=== PATIENT | female | born 1990 | race African-American/Black ===

== ENCOUNTER 2018-09-13 05:15 | Inpatient (IN) ==
[2018-09-13] MEDS ORDERED: CITRIC ACID/SODIUM CITRATE 30 ML UDCUP PO ONE (05:26)
[2018-09-13] MEDS ORDERED: FAMOTIDINE 20 MG/2 ML VIAL IV ONE (05:26)
[2018-09-13] MEDS ORDERED: LACTATED RINGERS 1,000 ML IV ONE (05:35)
[2018-09-13 05:50] LABS: Basophils % 0.3 % (0.0-0.8); Eosinophils # 0.4 10*3/uL (0.0-0.87); Eosinophils % 3.1 % (0.00-10.9); Hematocrit 31.4 VOL% (35.7-47.0); Hemoglobin 10.7 GM/DL (12.0-16.0); Immature Granulocytes % 0.4 %; Immature Granulocytes Absolute 0.05 #; Lymphocytes # 2.5 10*3/uL (1.4-4.0); Mean Corpuscular HGB Conc 34.1 GM/DL (32-36); Mean Platelet Volume 10.2 FL (9.6-12.0); NRBC # 0.02 10*3/uL; Neutrophils % 66.2 % (38.7-73.9); Platelet Count 197 T/CUMM (130-400); Red Blood Count 3.65 MC/CUMM (3.8-5.5); Red Cell Distribution Width 13.5 % (9.3-17.3); White Blood Count 11.5 T/CUMM (4-12)
[2018-09-13 06:09] LABS: Alanine Aminotransferase 10 U/L (13-56); Albumin 2.8 G/DL (3.4-5.0); Alkaline Phosphatase 113 U/L (45-117); Aspartate Amino Transferase 8 U/L (0-37); Bilirubin,Total < 0.39 MG/DL (0.2-1.0); Blood Urea Nitrogen 5 MG/DL (7-18); Calcium 8.7 MG/DL (8.5-10.1); Glucose 79 MG/DL (74-106); Osmolality,Calculated 268.8 MOS/KG (273-304); Total Protein 6.9 G/DL (6.4-8.3)
[2018-09-13] MEDS ORDERED: ceFAZolin 2,000 MG in PREMIX 1 EACH IV ONE (07:00)
[2018-09-13] MEDS ORDERED: OXYTOCIN/LR 30 UNIT/1,000 ML BAG IV ONE (08:09)
[2018-09-13] MEDS ORDERED: OXYTOCIN 10 UNIT/ML VIAL IM ONE (08:10)
[2018-09-13] MEDS ORDERED: fentaNYL 100 MCG/2 ML VIAL ONE (09:11)
[2018-09-13] MEDS ORDERED: MORPHINE 10 MG/10 ML VIAL ONE (09:11)
[2018-09-13] MEDS ORDERED: PHENYLEPHRINE 1 MG/10 ML SYRINGE IV ONE (09:11)
[2018-09-13] MEDS ORDERED: BUPIVACAINE SPINAL 0.75% 2 ML AMP SPINAL ONE (09:12)
[2018-09-13] MEDS ORDERED: ONDANSETRON 4 MG/2 ML VIAL ONE (09:12)
[2018-09-13] MEDS ORDERED: EPINEPHrine 1 MG/ML VIAL ONE (09:25)
[2018-09-13] MEDS ORDERED: BUPIVACAINE 0.5% 50 ML VIAL ONE (09:25)
[2018-09-13 10:05] LABS: Cord Venous Blood PCO2 43.5 MMHG
[2018-09-13] MEDS: ONDANSETRON 4 MG/2 ML VIAL IV PRN ×2 (11:15→14:22)
[2018-09-13 11:48] LABS: Apearance,Urine CLEAR (Clear); Bacteria,Urine Occasional /HPF (Few); Bilirubin,Urine Negative (Negative); Blood, Urine Negative (Negative); Glucose,Urine (UA) Negative (Negative); Ketones,Urine Negative (Negative); Mucus,Urine Occasional /LPF (Occasional); Nitrite,Urine Negative (Negative); Protein,Urine Negative; Squamous Epithelial Cell,Urine Occasional /HPF (0-10); Urine Color Yellow (Yellow); Urine Specific Gravity 1.011 (1.001-1.035); Urine Urobilinogen < 2.0 EU/DL (0.2-1.0); WBC,Urine <1 /HPF (0-6)
[2018-09-13] MEDS ORDERED: OXYTOCIN/LR 20 UNIT/1,000 ML BAG IV ONE (13:51)
[2018-09-13] MEDS ORDERED: ACETAMINOPHEN 325 MG TABLET PO PRN (13:51)
[2018-09-13] MEDS ORDERED: RHO(D) IMMUNE GLOBULIN 300 MCG SYRINGE IM ONE (13:51)
[2018-09-13] MEDS ORDERED: IBUPROFEN 800 MG TABLET PO PRN (13:51)
[2018-09-13] MEDS: ceFAZolin 1,000 MG in SYRINGE 1 EACH IV SCH (17:47)
[2018-09-13 18:52] LABS: Basophils % 0.2 % (0.0-0.8); Eosinophils % 0.1 % (0.00-10.9); Hematocrit 29.6 VOL% (35.7-47.0); Hemoglobin 10.3 GM/DL (12.0-16.0); Immature Granulocytes % 0.5 %; Lymphocytes # 1.4 10*3/uL (1.4-4.0); Lymphocytes % 7.2 % (21.3-54.2); Mean Corpuscular HGB Conc 34.8 GM/DL (32-36); Mean Corpuscular Volume 85.3 FL (87-102); Mean Platelet Volume 11.1 FL (9.6-12.0); Monocytes % 4.7 % (1.7-12.7); Neutrophils % 87.3 % (38.7-73.9); Platelet Count 188 T/CUMM (130-400); Red Blood Count 3.47 MC/CUMM (3.8-5.5); Red Cell Distribution Width 13.3 % (9.3-17.3); White Blood Count 19.2 T/CUMM (4-12)
[2018-09-13] MEDS: LACTATED RINGERS 1,000 ML IV SCH ×2 (20:15→20:21)
[2018-09-13] MEDS: DOCUSATE SODIUM 100 MG CAPSULE PO SCH (21:11)
[2018-09-14] MEDS: ceFAZolin 1,000 MG in SYRINGE 1 EACH IV SCH (01:40)
[2018-09-14] MEDS: LACTATED RINGERS 1,000 ML IV SCH (04:31)
[2018-09-14 06:17] LABS: Basophils % 0.3 % (0.0-0.8); Eosinophils # 0.1 10*3/uL (0.0-0.87); Eosinophils % 0.4 % (0.00-10.9); Hematocrit 27.3 VOL% (35.7-47.0); Hemoglobin 9.3 GM/DL (12.0-16.0); Immature Granulocytes % 0.6 %; Immature Granulocytes Absolute 0.09 #; Lymphocytes # 1.9 10*3/uL (1.4-4.0); Lymphocytes % 12.3 % (21.3-54.2); Mean Corpuscular HGB Conc 34.1 GM/DL (32-36); Mean Corpuscular Volume 85.8 FL (87-102); Mean Platelet Volume 11.2 FL (9.6-12.0); Monocytes % 7.2 % (1.7-12.7); Neutrophils % 79.2 % (38.7-73.9); Platelet Count 182 T/CUMM (130-400); Red Blood Count 3.18 MC/CUMM (3.8-5.5); Red Cell Distribution Width 13.4 % (9.3-17.3); White Blood Count 15.7 T/CUMM (4-12)
[2018-09-14] MEDS: MULTIVITAMIN (PRENATAL) TABLET PO SCH (09:23)
[2018-09-14] MEDS: MAGNESIUM HYDROXIDE SUSP 30 ML UDCUP PO PRN ×2 (09:23→20:51)
[2018-09-14] MEDS: DOCUSATE SODIUM 100 MG CAPSULE PO SCH ×2 (09:23→20:51)
[2018-09-14] MEDS: SIMETHICONE CHEW 80 MG TABLET PO PRN ×2 (09:23→20:51)
[2018-09-14] MEDS: METOCLOPRAMIDE 10 MG TABLET PO SCH ×2 (11:51→20:51)
[2018-09-15] MEDS: METOCLOPRAMIDE 10 MG TABLET PO SCH (04:06)
[2018-09-15] MEDS ORDERED: BISACODYL 10 MG SUPP RECTAL PRN (06:23)
[2018-09-15 08:26] VITALS: BP 127/76
[2018-09-15] MEDS: DOCUSATE SODIUM 100 MG CAPSULE PO SCH (08:48)
[2018-09-15] MEDS: SIMETHICONE CHEW 80 MG TABLET PO PRN (08:48)
[2018-09-15] MEDS: MULTIVITAMIN (PRENATAL) TABLET PO SCH (08:48)
== END 2018-09-15 14:00 | disposition home or self-care (01) | DRG 788 ==
LOC: N.LD 05:15 → N.OB 14:01
PROVIDERS: ADMIT Obstetrics & Gynecology; ATTEND Obstetrics & Gynecology
PROC: LDCSECT (ICD-10-PCS; 2018-09-13 09:45)

== ENCOUNTER 2020-09-21 06:01 | Inpatient (IN) ==
[2020-09-21] MEDS ORDERED: CITRIC ACID/SODIUM CITRATE 30 ML UDCUP PO ONE (06:09)
[2020-09-21] MEDS ORDERED: FAMOTIDINE 20 MG/2 ML VIAL IV ONE (06:09)
[2020-09-21] MEDS ORDERED: ceFAZolin 2,000 MG in PREMIX 1 EACH IV ONE (06:09)
[2020-09-21] MEDS: LACTATED RINGERS 1,000 ML IV SCH ×2 (06:30→14:22)
[2020-09-21 06:37] LABS: Basophils % 0.4 % (0.0-0.8); Eosinophils # 0.2 10*3/uL (0.0-0.87); Eosinophils % 2.6 % (0.00-10.9); Hematocrit 32.9 VOL% (35.7-47.0); Hemoglobin 11.6 GM/DL (12.0-16.0); Immature Granulocytes % 0.5 %; Immature Granulocytes Absolute 0.04 #; Lymphocytes % 23.7 % (21.3-54.2); Mean Corpuscular HGB Conc 35.3 GM/DL (32-36); Mean Corpuscular Volume 84.6 FL (87-102); Mean Platelet Volume 11.3 FL (9.6-12.0); Monocytes % 9.5 % (1.7-12.7); Neutrophils % 63.3 % (38.7-73.9); Platelet Count 208 T/CUMM (130-400); Red Blood Count 3.89 MC/CUMM (3.8-5.5); Red Cell Distribution Width 13.2 % (9.3-17.3); White Blood Count 8.5 T/CUMM (4-12)
[2020-09-21 06:51] LABS: INR 0.9; PT Patient Result 10.5 SECS (10.5-12.0)
[2020-09-21 06:59] LABS: Albumin 2.6 G/DL (3.4-5.0); Bilirubin,Total 0.8 MG/DL (0.2-1.0); Calcium 8.7 MG/DL (8.5-10.1); Osmolality,Calculated 269.8 MOS/KG (273-304); Potassium 4.2 MMOL/L (3.5-5.1); Total Protein 6.9 G/DL (6.4-8.2)
[2020-09-21] MEDS ORDERED: OXYTOCIN 10 UNIT/ML VIAL IM ONE (07:57)
[2020-09-21] MEDS ORDERED: OXYTOCIN/LR 30 UNIT/1,000 ML BAG IV ONE (07:57)
[2020-09-21] MEDS ORDERED: TRANEXAMIC ACID 1,000 MG/10 ML VIAL ONE (13:05)
[2020-09-21] MEDS ORDERED: CARBOPROST TROMETHAMINE 250 MCG/ML AMP IM ONE (13:05)
[2020-09-21] MEDS ORDERED: METHYLERGONOVINE 0.2 MG/1 ML AMP ONE (13:05)
[2020-09-21] MEDS ORDERED: miSOPROStoL 200 MCG TABLET ONE (13:05)
[2020-09-21] MEDS ORDERED: PHENYLEPHRINE 1 MG/10 ML SYRINGE IV ONE (16:00)
[2020-09-21] MEDS ORDERED: DEXAMETHASONE 4 MG/1 ML VIAL ONE (16:00)
[2020-09-21] MEDS ORDERED: ONDANSETRON 4 MG/2 ML VIAL ONE (16:00)
[2020-09-21 16:07] LABS: Cord Arterial Blood HCO3 21.2 MMOL/L
[2020-09-21 16:09] LABS: Cord Venous Blood HCO3 22.4 MMOL/L; Cord Venous Blood PCO2 42.6 MMHG; Cord Venous Blood PO2 30.3
[2020-09-21] MEDS ORDERED: IBUPROFEN 800 MG TABLET PO PRN (16:15)
[2020-09-21] MEDS ORDERED: OXYTOCIN/LR 20 UNIT/1,000 ML BAG IV ONE (16:15)
[2020-09-21] MEDS ORDERED: MAGNESIUM HYDROXIDE SUSP 30 ML UDCUP PO PRN (16:15)
[2020-09-21] MEDS ORDERED: SIMETHICONE CHEW 80 MG TABLET PO PRN (16:15)
[2020-09-21] MEDS ORDERED: RHO(D) IMMUNE GLOBULIN 300 MCG SYRINGE IM ONE (16:15)
[2020-09-21] MEDS ORDERED: ONDANSETRON 4 MG/2 ML VIAL IV PRN (16:15)
[2020-09-21] MEDS ORDERED: ACETAMINOPHEN 325 MG TABLET PO PRN (16:15)
[2020-09-21] MEDS ORDERED: LACTATED RINGERS 1,000 ML IV SCH (16:30)
[2020-09-21] MEDS: KETOROLAC 30 MG/1 ML VIAL IV SCH ×2 (16:53→22:56)
[2020-09-21] MEDS: ACETAMINOPHEN 500 MG TABLET PO SCH ×2 (16:53→22:57)
[2020-09-21 22:51] LABS: Basophils % 0.2 % (0.0-0.8); Hemoglobin 10.8 GM/DL (12.0-16.0); Immature Granulocytes % 0.5 %; Immature Granulocytes Absolute 0.08 #; Lymphocytes # 1.2 10*3/uL (1.4-4.0); Lymphocytes % 7.4 % (21.3-54.2); Mean Corpuscular HGB Conc 33.8 GM/DL (32-36); Mean Corpuscular Volume 87.2 FL (87-102); Mean Platelet Volume 10.9 FL (9.6-12.0); Monocytes % 2.8 % (1.7-12.7); Neutrophils % 89.1 % (38.7-73.9); Platelet Count 183 T/CUMM (130-400); Red Blood Count 3.67 MC/CUMM (3.8-5.5); Red Cell Distribution Width 13.2 % (9.3-17.3); White Blood Count 15.5 T/CUMM (4-12)
[2020-09-21] MEDS: DOCUSATE SODIUM 100 MG CAPSULE PO SCH (23:00)
[2020-09-22 05:50] LABS: Basophils % 0.1 % (0.0-0.8); Hematocrit 29.3 VOL% (35.7-47.0); Hemoglobin 10.3 GM/DL (12.0-16.0); Immature Granulocytes % 0.7 %; Lymphocytes # 1.5 10*3/uL (1.4-4.0); Lymphocytes % 10.2 % (21.3-54.2); Mean Corpuscular HGB Conc 35.2 GM/DL (32-36); Mean Corpuscular Volume 83.2 FL (87-102); Mean Platelet Volume 11.4 FL (9.6-12.0); Monocytes % 7.9 % (1.7-12.7); Neutrophils % 81.1 % (38.7-73.9); Platelet Count 171 T/CUMM (130-400); Red Blood Count 3.52 MC/CUMM (3.8-5.5); White Blood Count 14.9 T/CUMM (4-12)
[2020-09-22] MEDS: ACETAMINOPHEN 500 MG TABLET PO SCH ×2 (05:52→18:59)
[2020-09-22] MEDS: KETOROLAC 30 MG/1 ML VIAL IV SCH ×2 (05:52→19:00)
[2020-09-22] MEDS: DOCUSATE SODIUM 100 MG CAPSULE PO SCH ×2 (10:24→23:45)
[2020-09-22] MEDS: MULTIVITAMIN (PRENATAL) TABLET PO SCH (10:24)
[2020-09-22] MEDS ORDERED: KETOROLAC 30 MG/1 ML VIAL IV ONE (12:30)
[2020-09-22] MEDS ORDERED: ACETAMINOPHEN 500 MG TABLET PO ONE (12:30)
[2020-09-22] MEDS: METOCLOPRAMIDE 10 MG TABLET PO SCH (23:45)
[2020-09-23 07:27] VITALS: BP 131/70
[2020-09-23] MEDS: DOCUSATE SODIUM 100 MG CAPSULE PO SCH (10:13)
[2020-09-23] MEDS: METOCLOPRAMIDE 10 MG TABLET PO SCH (10:13)
[2020-09-23] MEDS: MULTIVITAMIN (PRENATAL) TABLET PO SCH (10:13)
== END 2020-09-23 12:05 | disposition home or self-care (01) | DRG 788 ==
LOC: N.LD 06:01 → N.OB 21:00
PROVIDERS: ADMIT Obstetrics & Gynecology; ATTEND Obstetrics & Gynecology
PROC: LDCSECT (ICD-10-PCS; 2020-09-21 15:00)